=== PATIENT | female | born 1940 | race Caucasian/White ===

== ENCOUNTER → 2017-08-05 | Outpatient (CLI) | payer MEDICARE, OTHER ==
[~2017-08-05] MED LIST: NO HOME MEDICATIONS
== END ==
LOC: COL.RAD 07:46
DX: M19.171 Post-traumatic osteoarthritis, right ankle and foot (principal)
CPT/HCPCS: J3301; Q9967

== ENCOUNTER 2017-12-20 11:13 | Observation (INO) | payer MEDICARE, OTHER ==
[~2017-12-20] VITALS: Ht 154.9 cm; Wt 59.7 kg
[2017-12-20] MEDS ORDERED: PRINIVIL10 MG PO (11:25)
[2017-12-20 11:42] LABS: BASO % 0.3 % (0.0-2.0); EOS # 0.1 (0.0-0.7); EOS % 0.6 % (0-4.0); GRAN # 10.5 (1.4-6.5); GRAN % 82.6 % (42.2-75.2); HEMATOCRIT 39.1 % (37.0-47.0); HEMOGLOBIN 12.8 g/dl (12.5-16.0); LYMPH # 1.3 (1.2-3.4); LYMPH % 10.4 % (20.0-51.0); MEAN CELL VOLUME 96 fl (80.0-100.0); MEAN CORPUSCULAR HEMOGLOBIN 31 pg (27.0-31.0); MEAN CORPUSCULAR HGB CONC 33 g/dl (33.0-37.0); MEAN PLATELET VOLUME 9.7 fl (7.4-10.4); MONO # 0.7 (0.1-0.6); MONO % 5.5 % (1.7-9.3); PLATELET COUNT 277 K/mm3 (130-400); RED BLOOD COUNT 4.08 M/mm3 (4.10-5.30); REDCELL DISTRIBUTION WIDTH-CV 12.5 % (11.5-14.5)
[2017-12-20 11:54] LABS: ALANINE AMINOTRANSFERASE 27 U/L (9-52); ALBUMIN 3.5 gm/dL (3.5-5.0); ALKALINE PHOSPHATASE 60 U/L (50-136); ANION GAP 12 mmol/L (7-16); AST,SGOT 30 U/L (15-37); BILIRUBIN,TOTAL 0.6 mg/dL (0.0-1.0); BLOOD UREA NITROGEN 20 mg/dL (7-17); CALCIUM 8.8 mg/dL (8.4-10.2); CARBON DIOXIDE 21 mmol/L (22-30); CHLORIDE 107 mmol/L (98-107); GLUCOSE 159 mg/dL (74-106); POTASSIUM 4.2 mmol/L (3.4-5.0); SODIUM 140 mmol/L (137-145); TOTAL PROTEIN 6.4 gm/dL (6.4-8.2)
[2017-12-20 11:56] LABS: ACETAMINOPHEN < 10 ug/mL (10-30); ALCOHOL(ethanol),MEDICAL < 10 mg/dL; SALICYLATE < 1.0 mg/dL
[2017-12-20 12:13] LABS: TROPONIN-I 0.053 ng/mL (0.000-0.034)
[2017-12-20 12:34] LABS: COLLECTION METHOD CATHETER
[2017-12-20 12:46] LABS: MUCOUS Present /lpf; PH 6 (5-8); SQUAMOUS EPITHELIAL 0-2 /hpf; URINE APPEARANCE Clear; URINE BACTERIA None Seen /hpf; URINE BILIRUBIN Negative (NEGATIVE); URINE BLOOD Negative (NEGATIVE); URINE COLOR Yellow; URINE GLUCOSE 2+ (NEGATIVE); URINE KETONE 1+ (NEGATIVE); URINE LEUKOCYTE ESTERASE Negative (NEGATIVE); URINE NITRATE Negative (NEGATIVE); URINE PROTEIN(semi-quant) Negative (NEGATIVE); URINE RBC 0-2 /hpf; URINE UROBILINOGEN Negative (NEGATIVE)
[2017-12-20 12:52] LABS: TRICYCLIC ANTIDEPRESS URINE NEGATIVE
[2017-12-20 13:10] LABS: INR 0.9 (0.8-3.0)
[2017-12-20 13:12] LABS: PARTIAL THROMBOPLASTIN TIME 25.3 SECONDS (26.0-37.0)
[2017-12-20 15:41] LABS: CHOLESTEROL RISK RATIO 2.4
[2017-12-20 16:19] VITALS: BP 127/51; PULSE 71; TEMP 97.8
[2017-12-20] MEDS ORDERED: PRESERVISION1 SGL PO (18:53)
[2017-12-20 23:42] VITALS: BP 102/45; PULSE 71; TEMP 97.4
[2017-12-21 04:08] VITALS: BP 91/50; PULSE 69; TEMP 98.7
[2017-12-21 07:38] LABS: BASO % 0.3 % (0.0-2.0); EOS # 0.1 (0.0-0.7); EOS % 1.5 % (0-4.0); GRAN # 4.9 (1.4-6.5); GRAN % 61.1 % (42.2-75.2); HEMATOCRIT 36.8 % (37.0-47.0); LYMPH % 25.2 % (20.0-51.0); MEAN CELL VOLUME 99 fl (80.0-100.0); MEAN CORPUSCULAR HEMOGLOBIN 32 pg (27.0-31.0); MEAN CORPUSCULAR HGB CONC 33 g/dl (33.0-37.0); MONO # 0.9 (0.1-0.6); MONO % 11.4 % (1.7-9.3); PLATELET COUNT 253 K/mm3 (130-400); RED BLOOD COUNT 3.73 M/mm3 (4.10-5.30); REDCELL DISTRIBUTION WIDTH-CV 13.1 % (11.5-14.5)
[2017-12-21 07:44] VITALS: BP 119/56; PULSE 73; TEMP 98.1
[2017-12-21 12:18] VITALS: BP 132/66; PULSE 69; TEMP 98.5
[2017-12-21 15:43] VITALS: BP 117/60; PULSE 69; TEMP 98.3
[2017-12-21 18:49] VITALS: BP 124/57; PULSE 65; TEMP 98.1
[2017-12-22] VITALS (12 sets, daily range): BP systolic 105–135; BP diastolic 39–93; PULSE 60–71; TEMP 36.3
[2017-12-22] MEDS ORDERED: PLAVIX 75MG TAB75 MG PO (13:30)
[2017-12-22] MEDS ORDERED: ASPIRIN E.C. 8181 MG PO (13:30)
[2017-12-22] MEDS ORDERED: LOPRESSOR 225 MG/TAB PO (13:31)
== END 2017-12-22 14:30 | disposition home or self-care (01) ==
LOC: COL.ER 11:13 → MEDICAL 15:08
PROVIDERS: Physician Assistant; Student in an Organized Health Care Education/Training Program
DX: I21.4 Non-ST elevation (NSTEMI) myocardial infarction (principal); I10 Essential (primary) hypertension; G92 Toxic encephalopathy; T38.1X1A Poisoning by thyroid hormones and substitutes, accidental (unintentional), initial encounter; T44.7X1A Poisoning by beta-adrenoreceptor antagonists, accidental (unintentional), initial encounter; T44.1X1A Poisoning by other parasympathomimetics [cholinergics], accidental (unintentional), initial encounter; Z87.891 Personal history of nicotine dependence; Z79.82 Long term (current) use of aspirin; Z79.899 Other long term (current) drug therapy
CPT/HCPCS: 99233-AI; J1650; J2250; J2405; J3010; J7030; Q9967

== ENCOUNTER → 2018-01-09 | Outpatient (CLI) | payer MEDICARE, OTHER ==
[~2018-01-09] MED LIST changes: +ASPIRIN E.C. 8181 MG PO; +LOPRESSOR 225 MG/TAB PO; +PLAVIX 75MG TAB75 MG PO; +PRESERVISION1 SGL PO; +PRINIVIL10 MG PO
== END ==
LOC: COL.RAD 08:30
DX: M25.571 Pain in right ankle and joints of right foot (principal)
CPT/HCPCS: J3301; Q9967

== ENCOUNTER → 2018-02-03 | Outpatient (CLI) | payer MEDICARE, OTHER | LOC: MC.RAD 08:28 | DX: Z12.31 Encounter for screening mammogram for malignant neoplasm of breast (principal) ==

== ENCOUNTER → 2018-06-08 | Outpatient (CLI) | payer MEDICARE, OTHER | LOC: COL.RAD 06-03 09:00 | DX: M25.571 Pain in right ankle and joints of right foot (principal) | CPT/HCPCS: J3301; Q9967 ==

== ENCOUNTER → 2018-12-02 | Outpatient (CLI) | payer MEDICARE, OTHER | LOC: COL.RAD 12:59 | DX: M25.571 Pain in right ankle and joints of right foot (principal) | CPT/HCPCS: J3301; Q9967 ==

== ENCOUNTER → 2019-04-28 | Outpatient (CLI) | payer MEDICARE, OTHER | LOC: COL.RAD 12:41 | DX: M25.571 Pain in right ankle and joints of right foot (principal) | CPT/HCPCS: J3301; Q9967 ==

== ENCOUNTER → 2020-03-08 | Outpatient (CLI) | payer MEDICARE, OTHER | LOC: COL.RAD 13:36 | DX: M25.571 Pain in right ankle and joints of right foot (principal) | CPT/HCPCS: J3301; Q9967 ==

== ENCOUNTER → 2020-08-07 | Outpatient (CLI) | payer MEDICARE, OTHER | LOC: COL.RAD 12:48 | DX: M25.571 Pain in right ankle and joints of right foot (principal) | CPT/HCPCS: J3301; Q9967 ==

== ENCOUNTER → 2021-01-15 | Outpatient (CLI) | payer MEDICARE, OTHER | LOC: COL.RAD 01-09 13:00 | DX: M25.571 Pain in right ankle and joints of right foot (principal) | CPT/HCPCS: J3301; Q9967 ==

== ENCOUNTER → 2021-07-18 | Outpatient (CLI) | payer MEDICARE, OTHER | LOC: COL.RAD 08:28 | DX: M19.071 Primary osteoarthritis, right ankle and foot (principal) | CPT/HCPCS: J3301; Q9967 ==

== ENCOUNTER → 2021-12-10 | Outpatient (CLI) | payer MEDICARE, OTHER | LOC: COL.RAD 08:29 | DX: M16.12 Unilateral primary osteoarthritis, left hip (principal); M19.071 Primary osteoarthritis, right ankle and foot | CPT/HCPCS: J3301; Q9967 ==

== ENCOUNTER → 2022-01-15 | Outpatient (CLI) | payer MEDICARE, OTHER | LOC: MC.RAD 13:22 | DX: Z12.31 Encounter for screening mammogram for malignant neoplasm of breast (principal) ==

== ENCOUNTER → 2022-03-13 | Outpatient (CLI) | payer MEDICARE, OTHER | LOC: COL.RAD 08:46 | DX: M25.552 Pain in left hip (principal) | CPT/HCPCS: J3301; Q9967 ==

== ENCOUNTER → 2023-11-24 | Outpatient (CLI) | payer MEDICARE, OTHER ==
[~2023-11-24] MED LIST changes: +Iohexol 300 - 10 ML VIAL IV ONE; +Triamcinolone 40 MG/ML 1 ML VIAL IJ ONE
== END ==
LOC: COL.RAD 08:28
DX: M25.571 Pain in right ankle and joints of right foot (principal)
CPT/HCPCS: J0665; J3301; Q9967

== ENCOUNTER → 2024-03-31 | Outpatient (CLI) | payer MEDICARE, OTHER | LOC: COL.RAD 03-12 10:15 | DX: M19.071 Primary osteoarthritis, right ankle and foot (principal) | CPT/HCPCS: J0665; J3301; Q9967 ==